=== PATIENT | female | born 1945 | race Caucasian/White ===

== ENCOUNTER 2017-06-05 20:40 | Observation (INO) | payer OTHER, MEDICAID ==
--- NOTE | 2017-06-05 20:44 | DR.CP ---
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 HE WAS WEAK AND SOB WITH SLIGHT NAUSEA. PAIN SPONTANOUSLY RESOLVE IN 45 MINUTES. HERE FOR FURTHER EVALUATION. HER RELATIVES DROVE HER TO THIS ED. PATIENT FAMILY SAID SHE WAS UNRESPONSIVE. PATIENT SAID SHE WAS GASPING FOR BREATH AND NOT UNRESPONSIVE. - Complaint Chief Complaint Doctor Comments: CHEST PAIN, SOB. - Reviewed Nurses Notes Review: Yes - Source History Provided: Patient - Mode of Arrival Mode of Arrival: Wheelchair - Timing Came on: Suddenly - Duration Duration: Constant Duration: Hours - Location Location of Chest Pain: Chest - Context Onset: At rest Prehospital Care: None - Quality Quality: Pressure like, Heavy - Severity Severity: Moderate - Modifying Factors Worsens: Nothing Impoves: Nothing - Associated Signs and Symptoms Associated Signs and Symptoms: Shortness of Breath ROS - Review of Systems Constitutional: Weakness, Fatigue. negative: Chills, Fever Eyes: No Symptoms Reported ENTM: No Symptoms Reported. negative: Ear Pain, Nose Discharge, Nose Congestion , Throat Pain Respiratoy: Short of Breath. negative: Productive Cough, Non-Productive Cough, Wheezing, Hemoptysis Cardiovascular: Chest Pain Gastrointestinal/Abdominal: No Symptoms Reported Genitourinary: No Symptoms Reported Neurological: No Symptoms Reported Musculoskeletal: No Symptoms Reported Integumentary: No Symptoms Reported Hematologic/Lymphatic: No Symptoms Reported Endocrine: No Symptoms Reported All Other Systems: Reviewed and Negative PE - Vitals Vitals: Temperature 97.6 F Pulse Rate [Apical] 66 Pulse Rate 74 Respiratory Rate 18 Blood Pressure [Right Arm] 108/66 Blood Pressure 136/65 O2 Sat by Pulse Oximetry 100 - General Limitations: No Limitations General Appearance: Alert - Head Head Exam: Normal Inspection - Eyes Eye exam: Normal Appearance - ENT ENT Exam: Normal External Ear Exam - Chest Chest Inspection: Symmetric Chest Wall Rise - Respiratory Respiratory Exam: Normal Lung Sounds Bilat Respiratory Exam: Bilateral Clear to Auscultation - Cardiovascular Cardiovascular Exam: Regular Rate, Normal Rhythm, Normal Heart Sounds Pulse: Normal, Radial, Femoral Edema: Normal - Abdominal Exam Abdominal Exam: Normal Bowel Sounds, Soft. negative: Tenderness - Extremities Extremities Exam: Normal Inspection - Back Back Exam: Normal Inspection - Neurologic Neurological Exam: Alert, Oriented X3 - Psychiatric Psychiatric Exam: Normal Affect, Normal Mood - Skin Skin Exam: Normal Color MDM - Additional Information Additional Information Obtained From: Family - Differential Diagnosis Differential Diagnosis: Angina, Myocardial Infarction, Pericarditis, Pleuritis, Pancreatitis, Pneumonia, Pneumothorax, Pulmonary Embolus Course - Treatment Treatment: SEE ORDERS. - Consultation Consultation Comments: DISCUSS PATIENT WITH DR. MEJIA. HE WILL ADMIT PATIENT. - Education/Counseling Education/Counseling: Patient, Family, Education Educated On: Diagnosis, Needs for Follow Up ROR - Labs Reviewed Laboratory Results Reviewed?: Yes Result Diagrams: 06/05/17 20:45 06/05/17 20:45 Laboratory: WBC 6.3 X10^3/uL (3.6-10.0) 06/05/17 20:45 RBC 4.06 X10^6/uL (3.5-5.4) 06/05/17 20:45 Hgb 11.7 g/dL (12.0-16.0) L 06/05/17 20:45 Hct 35.5 % (36.0-47.0) L 06/05/17 20:45 MCV 87.5 fL (80.0-100.0) 06/05/17 20:45 MCH 28.9 pg (27.0-34.0) 06/05/17 20:45 MCHC 33.1 g/dL (33.0-35.0) 06/05/17 20:45 RDW 14.5 % (11.6-16.5) 06/05/17 20:45 Plt Count 253 X10^3/uL (150.0-450.0) 06/05/17 20:45 MPV 7.9 fL (7.4-11.0) 06/05/17 20:45 Neut % 55.4 % (42.0-75.0) 06/05/17 20:45 Lymph % 30.1 % (21.0-51.0) 06/05/17 20:45 [place] % 8.3 % (0.0-13.0) 06/05/17 20:45 Eos % 5.1 % (0.9-2.9) H 06/05/17 20:45 Baso % 1.1 % (0.2-1.0) H 06/05/17 20:45 Neut # 3.5 x10^3/uL (2.2-4.8) 06/05/17 20:45 Lymph # 1.9 X10^3/uL (1.3-2.9) 06/05/17 20:45 [place] # 0.5 x10^3/uL (0.3-0.8) 06/05/17 20:45 Eos # 0.3 x10^3/uL (0.0-0.2) H 06/05/17 20:45 Baso # 0.1 X10^3/uL (0.0-0.1) 06/05/17 20:45 Absolute Nucleated RBC 0.1 /100WBC 06/05/17 20:45 Sodium 143 mmol/L (136-145) 06/05/17 20:45 Corrected Sodium TNP 06/05/17 20:45 Potassium 4.0 mmol/L (3.5-5.1) 06/05/17 20:45 Chloride 107 mmol/L (98-107) 06/05/17 20:45 Carbon Dioxide 28.3 mmol/L (21-32) 06/05/17 20:45 BUN 26 mg/dL (7-18) H 06/05/17 20:45 Creatinine 0.97 mg/dL (0.55-1.02) 06/05/17 20:45 Est GFR (MDRD) Af Amer > 60 (>60) 06/05/17 20:45 Est GFR (MDRD) Non-Af > 60 (>60) 06/05/17 20:45 Glucose 99 mg/dL (65-99) 06/05/17 20:45 Calcium 9.2 mg/dL (8.5-10.1) 06/05/17 20:45 Corrected Calcium TNP 06/05/17 20:45 Total Bilirubin 0.30 mg/dL (0.2-1.0) 06/05/17 20:45 AST 19 Units/L (15-37) 06/05/17 20:45 ALT 23 Units/L (12-78) 06/05/17 20:45 Alkaline Phosphatase 60 Units/L (46-116) 06/05/17 20:45 Creatine Kinase 92 Units/L (26-192) 06/05/17 20:45 CK-MB (CK-2) < 1.0 ng/mL (0-4.0) 06/05/17 20:45 CK/CKMB % Calc 1.1 % (<4) 06/05/17 20:45 Troponin I < 0.02 ng/mL (0-1.5) 06/05/17 20:45 Total Protein 7.2 g/dL (6.4-8.2) 06/05/17 20:45 Albumin 3.8 g/dL (3.4-5.0) 06/05/17 20:45 Globulin 3.4 g/dL (2.5-4.5) 06/05/17 20:45 Albumin/Globulin Ratio 1.1 Ratio (1.1-2.1) 06/05/17 20:45 - XRAY XRAY Interpreted by: Radiologist XRAY Findings: REPORT DISCUSS WITH PATIENT. - EKG Rhythm: NSR (EKG NOTED.) - Diagnosis Discharge Problem: Respiratory distress Chest pain Qualifiers: Chest pain type: precordial pain Qualified Code(s): R07.2 - Precordial pain - Discharge Plan Disposition: 09 ADMITTED INPATIENT Condition: Stable - Follow ups/Referrals - Instructions
[2017-06-05 20:54] LABS: BASOPHILS # (AUTO) 0.1 X10^3/uL (0.0-0.1); BASOPHILS % (AUTO) 1.1 % (0.2-1.0); EOSINOPHILS # (AUTO) 0.3 x10^3/uL (0.0-0.2); EOSINOPHILS % (AUTO) 5.1 % (0.9-2.9); HEMATOCRIT 35.5 % (36.0-47.0); HEMOGLOBIN 11.7 g/dL (12.0-16.0); LYMPHOCYTES # (AUTO) 1.9 X10^3/uL (1.3-2.9); LYMPHOCYTES % (AUTO) 30.1 % (21.0-51.0); MEAN CORPUSCULAR HEMOGLOBIN 28.9 pg (27.0-34.0); MEAN CORPUSCULAR HGB CONC 33.1 g/dL (33.0-35.0); MEAN CORPUSCULAR VOLUME 87.5 fL (80.0-100.0); MEAN PLATELET VOLUME 7.9 fL (7.4-11.0); MONOCYTES # (AUTO) 0.5 x10^3/uL (0.3-0.8); MONOCYTES % (AUTO) 8.3 % (0.0-13.0); NEUTROPHILS # (AUTO) 3.5 x10^3/uL (2.2-4.8); NEUTROPHILS % (AUTO) 55.4 % (42.0-75.0); PLATELET COUNT 253 X10^3/uL (150.0-450.0); RED BLOOD COUNT 4.06 X10^6/uL (3.5-5.4); RED CELL DISTRIBUTION WIDTH 14.5 % (11.6-16.5); WHITE BLOOD COUNT 6.3 X10^3/uL (3.6-10.0)
[2017-06-05 21:07] LABS: BLOOD UREA NITROGEN 26 mg/dL (7-18); CALCIUM 9.2 mg/dL (8.5-10.1); CARBON DIOXIDE 28.3 mmol/L (21-32); CHLORIDE 107 mmol/L (98-107); CREATININE 0.97 mg/dL (0.55-1.02); SODIUM 143 mmol/L (136-145); TROPONIN I < 0.02 ng/mL (0-1.5); eGFR BLACK RACES > 60 (>60); eGFR NON BLACK RACES > 60 (>60)
[2017-06-05 21:11] LABS: ALANINE AMINOTRANSFERASE 23 Units/L (12-78); ALBUMIN 3.8 g/dL (3.4-5.0); ALKALINE PHOSPHATASE 60 Units/L (46-116); ASPARTATE AMINO TRANSFERASE 19 Units/L (15-37); CKMB % 1.1 % (<4); CREATINE KINASE 92 Units/L (26-192); CREATINE KINASE MB < 1.0 ng/mL (0-4.0); TOTAL PROTEIN 7.2 g/dL (6.4-8.2)
[2017-06-05] MEDS ORDERED: ASPIRIN 81 MG CHEWTAB PO ONE (21:30)
[2017-06-05] MEDS ORDERED: PEPCID 20 MG IV PREMIX* 20 MG/50 ML BAG IV ONE ×2 (21:30→21:57)
[2017-06-05] MEDS ORDERED: ASPIRIN 81 MG CHEWTAB ONE (21:57)
[2017-06-05] MEDS ORDERED: NS 250 ML IV 250 ML IV ONE (21:58)
--- NOTE | 2017-06-05 22:28 | RAD ---
EXAM: Chest X-ray INDICATION: Chest pain COMPARISION: No prior TECHNIQUE: AP, single view FINDINGS: The lungs are clear in the lung volumes are within normal limits. No pleural effusion or pneumothorax . The cardiac silhouette and mediastinum are normal. The regional skeleton is intact. IMPRESSION: Normal Chest X-Ray Reported By:
[2017-06-05] MEDS ORDERED: COLACE CAP 100 MG PO PRN ×2 (22:52→23:14)
[2017-06-05] MEDS ORDERED: VITAMIN D (1.25MG) PO SCH (23:00)
[2017-06-05] MEDS ORDERED: NS 1000 ML 1,000 ML IV SCH (23:00)
[2017-06-06 00:12] VITALS: BMI 20.7
[2017-06-06] MEDS: NORCO 5/325 MG TAB PO SCH ×3 (00:32→12:41)
[2017-06-06] MEDS: PATIENT'S HOME MEDICATION (Alprazolam [Alprazolam] 1 MG) PO SCH ×2 (00:32→08:24)
[2017-06-06] MEDS: ATIVAN TAB 0.5 MG PO SCH ×2 (00:33→08:26)
[2017-06-06] MEDS: NAMENDA TAB 10 MG PO SCH ×2 (00:33→08:27)
[2017-06-06 05:43] LABS: EOSINOPHILS # (AUTO) 0.3 x10^3/uL (0.0-0.2); EOSINOPHILS % (AUTO) 6.4 % (0.9-2.9); HEMOGLOBIN 10.9 g/dL (12.0-16.0); LYMPHOCYTES # (AUTO) 1.6 X10^3/uL (1.3-2.9); LYMPHOCYTES % (AUTO) 35.9 % (21.0-51.0); MEAN CORPUSCULAR HEMOGLOBIN 29.4 pg (27.0-34.0); MEAN CORPUSCULAR VOLUME 86.6 fL (80.0-100.0); MEAN PLATELET VOLUME 7.7 fL (7.4-11.0); MONOCYTES # (AUTO) 0.5 x10^3/uL (0.3-0.8); MONOCYTES % (AUTO) 10.2 % (0.0-13.0); NEUTROPHILS # (AUTO) 2.1 x10^3/uL (2.2-4.8); NEUTROPHILS % (AUTO) 46.5 % (42.0-75.0); PLATELET COUNT 249 X10^3/uL (150.0-450.0); RED CELL DISTRIBUTION WIDTH 14.3 % (11.6-16.5); WHITE BLOOD COUNT 4.5 X10^3/uL (3.6-10.0)
[2017-06-06 05:50] LABS: ALANINE AMINOTRANSFERASE 19 Units/L (12-78); ALBUMIN 3.1 g/dL (3.4-5.0); ALKALINE PHOSPHATASE 50 Units/L (46-116); ASPARTATE AMINO TRANSFERASE 15 Units/L (15-37); BLOOD UREA NITROGEN 22 mg/dL (7-18); CALCIUM 8.3 mg/dL (8.5-10.1); CARBON DIOXIDE 26.8 mmol/L (21-32); CHLORIDE 110 mmol/L (98-107); CHOLESTEROL 204 mg/dL (0-200); CREATININE 0.95 mg/dL (0.55-1.02); HDL CHOLESTEROL 41 mg/dL (40-60); SODIUM 143 mmol/L (136-145); TRIGLYCERIDES 150 mg/dL (0-150); eGFR BLACK RACES > 60 (>60); eGFR NON BLACK RACES > 60 (>60)
[2017-06-06 06:04] LABS: CKMB % 1.5 % (<4); CREATINE KINASE 68 Units/L (26-192); CREATINE KINASE MB < 1.0 ng/mL (0-4.0); TROPONIN I < 0.02 ng/mL (0-1.5)
[2017-06-06] MEDS ORDERED: PATIENT'S HOME MEDICATION (Meloxicam [Meloxicam] 7.5 MG) PO SCH (09:00)
[2017-06-06] MEDS ORDERED: MOBIC TAB 15 MG PO SCH (09:00)
[2017-06-06] MEDS ORDERED: XANAX PO SCH (09:00)
[2017-06-06 11:08] LABS: BILIRUBIN,URINE NEGATIVE (NEGATIVE); BLOOD/HEMOGLOBIN,URINE NEGATIVE (NEGATIVE); GLUCOSE, URINE NEGATIVE (NEGATIVE); KETONES,URINE NEGATIVE (NEGATIVE); LEUKOCYTE ESTERASE ,URINE 2+ (NEGATIVE); NITRITES,URINE NEGATIVE (NEGATIVE); PROTEIN,URINE NEGATIVE (NEGATIVE); UROBILINOGEN,URINE NORMAL (NORMAL)
[2017-06-06 11:10] LABS: CKMB % 1.3 % (<4); CREATINE KINASE 80 Units/L (26-192); CREATINE KINASE MB < 1.0 ng/mL (0-4.0); TROPONIN I < 0.02 ng/mL (0-1.5)
[2017-06-06 11:28] LABS: APPEARANCE,URINE SLIGHTLY HAZY (CLEAR); BACTERIA,URINE NEGATIVE /HPF (NEGATIVE); COLOR,URINE YELLOW (YELLOW); MUCUS,URINE MODERATE /HPF (NEGATIVE); SQUAMOUS EPITHELIAL CELL,UR RARE /HPF (NEGATIVE)
[2017-06-06 12:40] VITALS: BP 112/60
[2017-06-06] MEDS ORDERED: QUETIAPINE FUMARATE 100 MG PO SCH (21:00)
[2017-06-06] MEDS ORDERED: SEROquel TAB 100 MG PO SCH (21:00)
--- NOTE | 2017-06-12 22:59 | DR.CARTERS ---
Short Stay Summary - Short Stay Summary for: Short Stay Summary for Date of:: 06/06/17 - Admission Date Date of Admission: 06/05/17 - Discharge Date Discharge Date: 06/06/17 - Admission Diagnoses (1) Chest pain Status: Acute (2) Respiratory distress Status: Acute - Hospital Course Hospital Course: is a 71 year old patient of ours who presented to the emergency room with complaints of chest pain and shortness of breath. Patient reported that pain came on suddenly, then resolved after 45 minutes. Patients family reported that she was gasping for breath. Patient reports pressure and heaviness on her chest. Associated symptoms include weakness, fatigue, shortness of breath, and chest pain. On examination, lungs were noted clear to auscultation. Abdomen was round, soft, and non-tender with normal bowel sounds noted in all quadrants. On arrival to the ER, vitals were 97.6, 74, 16, 99%RA, 136/65. Labs, chest xray, and EKG were obtained. Abnormal lab values include the following: Hgb 11.7, Hct 35.5, Eos% 5.1, Baso% 1.1, Eos# 0.3, BUN 26. Cardiac enzymes were within normal limits. EKG reported: Sinus rhythm. Heart rate=67. Chest xray was normal. She reported a medical history of alzheimers disease, urinary tract infections, hysterectomy, muscle weakness, back pain, CAD , hypertension. We admitted patient for further evaluation and treatment. We planned to obtain serial cardiac enzymes and EKGs, follow up with AM labs, and continue to monitor patient. Day 2 of stay: is alert and oriented, lying in bed on morning rounds. She denies shortness of breath or chest pain upon rounds. Patients daughter is at bedside and reports that patient was without pain throughout the night. On examination, lungs are clear to auscultation. Abdomen is round, soft, and non-tender with normal bowel sounds noted in all quadrants. She is utilizing oxygen via nasal cannula at 2l/min at this time. Her vital signs this morning are 98.7-65-16-98%-109/66. Labs and EKGs were obtained. Abnormal lab values include the following: HGB 10.9, HCT 32, CHLORIDE 110, BUN 22, CALCIUM 8.3, TOTAL PROTEIN 6.0, ALBUMIN 3.1, CHOLESTEROL 204, LDL 133. Cardiac enzymes within normal limits. Most recent EKG reported sinus rhythm with HR 65. An echocardiogram was obtained and reported and ejection fraction of 68%. We discussed with patient the need for outpatient stress test and cardiac work-up. We planned for discharge. Instructions for medications and follow-up were discussed with patient and family. Patient and family verbalized understanding of all orders. Patient was discharged in stable condition with a new prescription for ecotrin 325mg po daily. She is instructed to follow up in our office on 06/14/17. - Discharge Medications Discharge Medications: Alprazolam 1 mg PO BID 06/05/17 [History] Docusate Sodium [Stool Softener] 100 mg PO PRN PRN 06/05/17 [History] Ergocalciferol (Vitamin D2) [Vitamin D2] 50,000 unit PO WEEKLY 06/05/17 [History ] Hydrocodone-Acet 5 mg/325 mg [NORCO 5 MG/325 MG *] 2 tab PO Q6H 06/05/17 [ History] Lorazepam 0.5 mg PO BID 06/05/17 [History] Meloxicam 7.5 mg PO DAILY 06/05/17 [History] Memantine HCl 10 mg PO BID 06/05/17 [History] Quetiapine Fumarate [Quetiapine Fumarate ER] 100 mg PO HS 06/05/17 [History] Aspirin EC [ECOTRIN 325 MG *] 325 mg PO DAILY #90 tab 06/06/17 [Rx] Multivitamin [Multi-Vitamin Daily] 1 tab PO DAILY 06/06/17 [History] Nitrofurantoin Cap [MACRODANTIN 50 MG *] 100 mg PO BID 06/06/17 [History] - Discharge Plan Disposition: HOME, SELF-CARE Condition: Stable Prescriptions: Aspirin EC [ECOTRIN 325 MG *] 325 mg PO DAILY #90 tab - Follow up/Referrals Follow up/Referrals: ANITA ARTHUR [Primary Care Provider] - 06/14/17 1:30 pm - Instructions Instructions: Chest Pain Observation Additional Instructions: ACTIVITY TOLERATED. DIET TOLERATED. Forms: Patient Portal
== END 2017-06-06 16:40 | disposition home or self-care (01) ==
LOC: ER 20:40 → MED/SURG 22:47
PROVIDERS: ADMIT Internal Medicine; ATTEND Internal Medicine
DX: R07.2 Precordial pain (principal); R06.03 Acute respiratory distress; R53.1 Weakness; R06.02 Shortness of breath; Z79.01 Long term (current) use of anticoagulants
CPT/HCPCS: 36415; 71010; 80053; 80061; 81001; 82550; 82553; 83735; 84484; 85025; 85610; 85730; 93005; 93306; 94760; 96365; 96374; 99284; A4222; S0028; G0378